=== PATIENT | male | born 1985 ===

== ENCOUNTER 2025-11-17 11:10 | Inpatient (IN) | payer MEDICARE, OTHER ==
[~2025-11-17] VITALS: Ht 185.4 cm; Wt 121.2 kg
[2025-11-17] MEDS ORDERED: Haloperidol Lactate Inj. 5 MG/ML Injection IM PRN (16:45)
[2025-11-17] MEDS ORDERED: FLU VACC TS2025-26(6MOS UP)/PF 45 MCG/0.5 ML SYRINGE IM SCH (16:45)
[2025-11-17] MEDS ORDERED: LORazepam 2 MG/ML 1ML Injection IM PRN (16:50)
[2025-11-17] MEDS ORDERED: DIVA500EC PO (16:52)
[2025-11-17] MEDS ORDERED: OLAN10 PO (16:52)
[2025-11-17] MEDS ORDERED: Ondansetron 4 MG SoluTab MM PRN (16:55)
[2025-11-17] MEDS ORDERED: DiphenhydrAMINE HCl 50 MG/ML 1ML Vial IM PRN (16:55)
[2025-11-17] MEDS ORDERED: Polyethylene Glycol 3350 17 gm PO PRN (16:55)
[2025-11-17] MEDS ORDERED: Aluminum Hydroxide 320MG/5ML 473 ML PO PRN (16:55)
[2025-11-17 17:31] VITALS: BP 135/92
--- NOTE | 2025-11-17 18:11 | NUR ---
ADMISSION NOTE PT BROUGHT TO [facility] FROM [facility] CR[facility]IT VIA SECURED TRANSPORT. PT ARRIVES DELUSIONAL AND AGITATED. SECURITY CALLED TO UNIT FOR STAND BY. PT VERBALLY THREATENING MHA'S. LEOPOLDO RN AND AND THIS RN SPOKE TO PT. PT SLIGHTLY CALMER. STATES HE IS IN THE [place] AND [place] [place]. HE IS ABLE TO STATE HIS MEDS, THE DATE, AND HIS PHARMACY WAS [facility]. MEDS WERE VERIFIED BY CHARGE NURSE AT [facility], THERE IS NO [facility] IN [facility]. PT REFUSING ANY PRN MEDICATIONS TO HELP WITH THE AGITATION, HE DAMENDS HIS DEPAKOTE THAT HE STATES HE HAS BEEN ON FOR YEARS. PT COOPERATIVE THE TWO RN SKIN CHECK, EXCEPT PT REFUSED TO EXPOSE HIS ANTERIOR LOWER HALF D/T RN'S WERE FEMALE. CHECK WAS DONE BY LEOPOLDO AND THIS RN. PT WAS COOPERATIVE SLIGHTLY LES AGITATED WITH THIS RN WHEN SIGNING FORMS. HE WAS ANXIOUS TO LEAVE THE ROOM AND GAVE DELUSIONAL ANSWERS TO MOST QUESTIONS. HE WAS GIVEN HIS TOUR OF THE UNIT AND THIS SEEMED TO MAKE HIM MORE CALM. HE WAS PROVIDED HIS OWN ROLL OF TOILET PAPER D/T HE FEELS IT UNSANITARY TO SHARE ONE WITH HIS ROOMMATE. PT WAS MORE CALM AFTER THE TOUR OF THE FACILITY. HE WAS PROVIDED WITH A JOURNAL AND EMERY BOARD. PT INFORMED OF PHONE HOURS AND VISITOR HOURS. PT WAS CALM AND COOPERATIVE WITH THIS RN DURING TOUR AND FORM SIGNING. UNABLE TO COMPLETE FULL ADMISSION ASSESSMENTS.
--- NOTE | 2025-11-17 23:11 | NUR ---
CHART REVIEW FROM [facility] REVEALS THE FOLLOWING: INVOLUNTARY HOSPITALIZATIONS FOR CHRIS/PSYCHOSIS IN NOVEMBER 2024, MARCH 2025, AND MULTIPLE ADMISSIONS IN 2023. DX INCLUDE BIPOLAR DISORDER, ANTISOCIAL PERSONALITY DISORDER, ANXIETY, MANIC DISORDER RECURRENT, CANNABIS DEPENDENCE. TAKES ZYPREXA, KLONOPIN, AND DEPAKOTE AT HOME. LIVES IN [place] [facility]. MENTAL HEALTH PROVIDERS ARE ROBER STODDARD (PROVIDER), MARY KAY BARNARD (CASH GRAIN GROWER), AND TERESSA LOPEZ (THERAPIST).
--- NOTE | 2025-11-17 23:32 | NUR ---
MID SHIFT SUMMARY: PT HAS SLEPT ALL EVENING. DID NOT WANT TO PARTICIPATE IN SNACK OR ON UNIT. STATES "I'M SO EXHAUSTED. I JUST NEED TO SLEEP." WAS GIVEN DEPAKOTE EARLY RELATED TO MISSED DOSING DURING TRANSITION THROUGH ER AND TRANSFER TO THIS FACILITY. PT THEN WENT TO SLEEP FOR THE EVENING AND HAS BEEN SLEEPING WITHOUT INTERRUPTION. CONTINUE 15 MINUTE CHECKS FOR SAFETY.
--- NOTE | 2025-11-18 00:14 | NUR ---
ASSUMPTION OF CARE ASSUMED CARE OF PATIENT FROM MICHAEL MANCIA AT MIDNIGHT. HE IS CURRENTLY RESTING QUIETLY IN HIS BED. NO SIGNS OF ACUTE DISTRESS NOTED. HE DID NOT RECEIVE ANY PRN MEDICATIONS PRIOR IN THE SHIFT. CONTINUES TO BE MONITORED EVERY 15 MINUTES FOR WELLNESS AND SAFETY.
--- NOTE | 2025-11-18 04:33 | NUR ---
END OF SHIFT SUMMARY PATIENT HAS SLEPT SINCE THIS FIELD SOFTWARE ENGINEER ASSUMED CARE AT MIDNIGHT. NO PRN MEDICATIONS WERE UTILIZED. PATIENT WOKE UP AT APPROXIMATELY 0330 AND WAS COMPLAINING ABOUT BEING HUNGRY. WHEN TOLD THE DINING GUTIERREZ WAS CLOSED UNTIL BREAKFAST, HE BECAME UPSET AND BEGAN ACCUSING STAFF OF STARVING HIM. HE THEN BEGAN TO BECOME RELIGIOUSLY PREOCCUPIED AND WAS ASKING ALL OF THE STAFF WHAT JAIN THEY WERE. THIS WAS HIS ADMISSION DAY AND HE HAD SLEPT THROUGH EVENING SNACK, THE DECISION WAS MADE TO ALLOW HIS A SNACK. HE CONSUMED 2 FRUIT CUPS AND AND CARTON OF MILK. HE THEN RETURNED TO HIS BED. CONTINUES TO BE MONITORED EVERY 15 MINUTES FOR WELLNESS AND SAFETY.
[2025-11-18 07:49] LABS: CHOL/HDL RATIO 2.8; Cholesterol 142 mg/dL (50-200); HDL Cholesterol 50 mg/dL (>39); LDL/HDL RATIO 1.4; Low Density Lipoprotein Chol 70 mg/dL (0-110); Triglycerides 112 mg/dL (30-140); Very Low Density Lipoprot Chol 22 mg/dL (6-28)
[2025-11-18] MEDS ORDERED: Multivitamins 1 Tab PO SCH (09:00)
--- NOTE | 2025-11-18 09:55 | NUR ---
PATIENT BECOMING AGITATED BECAUSE THE PROVIDER TOLD HIM HE WAS ON A HOLD AND WOULD NOT BE LEAVING TODAY. PATIENT UP AT NURSING STATION, REPEATING HIS CASE OF WHY HE SHOULD BE ABLE TO GO. SECURITY WAS CALLED AND IS MAKING AN APPEARANCE ON THE UNIT. PATIENT WAS OFFERED A PRN BUT IS NOT WILLING TO TAKE A MEDICATION UNLESS IT IS CLONODINE. NURSING WILL REVIEW THAT MEDICATION WITH THE PROVIDER DURING TEAM.
--- NOTE | 2025-11-18 11:11 | NUR ---
PCI INFO: [facility] [phone]
--- NOTE | 2025-11-18 17:31 | NUR ---
SHIFT SUMMARY PT A/O TO SELF AND PLACE. HE DENIES SI, HI, AVTH, BUT CAN BE SEEN RESPONDING TO INTERNAL STIMULI. PT EXPERIENCES SIGNIFICANT DELUSIONS. HE BELIEVES THAT HE IS IN THE [place], PART OF THE [employer] [place], AND THAT HE IS IN A RELATIONSHIP WITH TERESO ROLDAN. HE HAS A HARD TIME HAVING A ROOM MATE AND DECLINES TO SHOWER IN HIS ROOM. PT HAS NOW BEEN PUT INTO A ROOM BY HIMSELF FOR OTHER PATIENTS' COMFORT. PT DECLINES TO TAKE PRN MEDICATIONS AND WILL ONLY TAKE DEPAKOTE AND CLONIDINE. HE DID NOT ATTEND ANY GROUPS BUT DID EAT MEALS.
--- NOTE | 2025-11-19 05:05 | NUR ---
SHIFT SUMMARY 40 YEAR-OLD MALE PRESENTS WELL GROOMED. HE IS ALERT AND ORIENTED. HE SPEAKS IN A CLEAR VOICE AND IN AN APPROPRIATE VOLUME. HE IS ABLE TO MAKE AND KEEP EYE CONTACT DURING CONVERSATIONS. AT THE TIME OF HIS ASSESSMENT, HE DESCRIBED HIS MOOD "I'M GOOD". HE ALSO DENIED SI, HI, AND AVTH AT THAT TIME. HE WAS HOWEVER NOTED RESPONDING TO INTERNAL STIMULI AT VARIOUS TIMES THROUGHOUT THE SHIFT. HE ATTENDED SNACK AND DAY ROOM. AT APPROXIMATELY 1155, HE APPROACHED THE NURSES STATION TO TURN IN A BAG OF CHEETOS HE HAD TAKEN FROM THE DINING ROOM. HE AWOKE AT 1130 AND BEGAN TO ENGAGE IN ATTENTION SEEKING BEHAVIORS. STAFF DID NOT RESPOND TO THESE BEHAVIORS, AND HE WENT BACK TO HIS ROOM AT APPROXIMATELY 0400 AND TOOK A SHOWER. AT THE TIME OF THIS WRITING, HE IS SPEAKING AGGRESSIVELY WITH STAFF. SECURITY WAS CALLED. HE BEGAN TO BE VERBALLY AGGRESSIVE TOWARDS THEM ALSO. MADE COMMENTS ABOUT GANGS, FIGHTING, THROWING ELBOWS, AND REFERENCES TO PEDAPHILES. HE ALSO MADE SEXUALLY INAPPROPRIATE COMMENTS ABOUT MASTURBATING. HE WAS COMPLIANT WITH CARE AND MEDICATION ADMINISTRATION. HE RECEIVED THE FOLLOWING PRN MEDICATIONS: TYLENOL 650MG FOR 6/10 HIP PAIN. HE CONTINUES TO BE MONITORED EVERY 15 MINUTES FOR WELLNESS AND SAFETY.
--- NOTE | 2025-11-19 05:06 | NUR ---
PRN NOTE PATIENT RECEIVED THE FOLLOWING PRN MEDICATIONS DURING PATHOLOGY LABORATORY AIDE: TYLENOL 650MG FOR 6/10 HIP PAIN, NICORETTE 2MG AT 0452.
--- NOTE | 2025-11-19 10:55 | NUR ---
PT APPEARED TO BE AGGITATED UPON THIS RN'S ARRIVAL TO UNIT. PACING IN THE HALLWAY, SPEAKING IN A RAISED VOICE TO HIMSELF, STAFF AND PEERS. PT DECLINED TO PARTICIPATE IN HIS AM ASSESSMENT. WHEN ASKED ABOUT HIS MOOD, HE STATES "YOURE GOING TO CALL THE NATIONAL GUARD, NAW THEY WON'T DO ANYTHING" PT POSTURING AT STAFF AND PEERS, WALKING UP AND DOWN THE GUTIERREZ IN FRONT OF THE NURSES STATION. HIS CONVERSATIONPT REFUSED ALL MEDICATIONS. PT TANGINTIAL AND CONVERSATION VERY DIFFICULT TO FOLLOW. ATTEMPTS TO DEESCILATE WERE UNSUCCESSFUL. PT BECAME INCREASINGLY AGGITATED, SPEAKING LOUDER AND GETTING CLOSER TO STAFF AND OTHER PATIENTS. MASS SCORE OF 18. SECURITY CALLED TO UNIT TO ASSIST WITH EMERGENCY MEDICATION. PT STATED, "IF SECURITY COMES, IT'S ON", "CALL THE FUCKING STARTER MECHANIC". MEDICATIONS NOT GIVEN AT THIS TIME, PT REFUSES MEDICATIONS AND PER SECURITY THEY ARE NOT ABLE TO ASSIST WITH PHYSICAL HOLD UNLESS PT IS DAMAGING PROPERTY OR PHYSICALLY ASSUALTIVE. SECURITY LEFT THE UNIT AND DR. CHOPRA ORDERED 1:1 OBSERVATION FOR PATIENT. PRESSROOM SUPERVISOR NOTIFED AND 1:[address]
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
--- NOTE | 2025-11-20 07:51 | NUR ---
AT APPROXIMATELY 0645 PATIENT IS YELLING IN THE GUTIERREZ AT STAFF AND OTHER PATIENTS. HE IS POSTURING AND MAKING LUNGING MOTIONS TO STFF AND OTHER PATIENTS. HE IS REACHING OVER PLEXY GLASS INTO NURSING STATION YELLING PROFANITIES. ATTEMPTED TO VERBALY DEESCALATE, THIS CAUSES PT TO YELL LOUNDER AND JUMP UP AND DOWN, THREATENING TO KILL STAFF. SECURITY CALLED. PT IS REFUSING ORAL MEDICATION. DR. CHOPRA NOTIFIED ORDER FOR SECLUSION AND 10MG HALODOL, 50MG BENADRYL, AND 2MG ATIVAN RECIEVED AND ADMINISTERED. PT YELLING AND THREATENING STAFF AND SECURITY BUT AFTER MUCH ENCOURAGEMENT HE DID ALLOW THIS RN TO ADMINISTER IM WITHOUT GOING HANDS ON AND SECURITY HOLDING HIS HAND. HE WAS STILL POSTURING AND THREATENING TO KILL STAFF. HE DID WALK HIMSELF TO SECLUSION YELLING AND JUMPING . HE BEGAN PUNCHING MIDDLETON AND WINDOWS THREATENING TO KILL STAFF. HE WAS PUNCHING HIMSELF IN THE CHEST. HE DEFICATED IN THE CORNER. WE WILL CONTINUE ONE TO ONE AND 15 MINUTE CHARTING
--- NOTE | 2025-11-20 08:57 | NUR ---
AT APPROXIMATELY 0845 PT HAS SETTLED DOWN AND APPEARS TO BE SLEEPING. THIS RN INTO SELCIUSION ROOM AND OFFERED THE PATIENT TO GO LAY DOWN IN HIS ROOM PATIENT SHOOK HIS HEAD NO. HE WAS OFFERED WATER OR FOOD HE AGAIN SHOOK HEAD NO. SECLUSION ROOM UNLOCKED. PT IS FREE TO LEAVE ROOM AT HIS WILL. CONTINUED ONE TO ONE WITH RADHA VILLARREAL. PT CONTINUES TO REST ON ECLUSION ROOM MATTRESS
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
--- NOTE | 2025-11-20 11:18 | NUR ---
SPOKE WITH DR. CHOPRA ORDERS RECIEVED OKAY TO DC 1:1 UNTIL PATIENT WAKES UP THEN REASSESS.
--- NOTE | 2025-11-20 17:37 | NUR ---
SHIFT SUMMARY PT REFUSED ALL ASSESMENTS. HIS SPEECH IS PRESSURED AND TANGENTAL. HE MAKES PRANOID STATEMENTS ABOUT STAFF AND PEERS. HE WAS DISRUPTIVE ON THE UNIT AND WAS GIVEM IM HALIODOL, ATIVAN, AND BENADRYL AND PLACED IN SOLITARE. WHEN OUT AGAIN HE BEGAN TO ESCALATE AGAIN AND RECIEVED PRN ZYPREXA. PLEASE SEE PREVIOUS NOTES. AFTER THAT PT HAS SLEPT THROUGH THE AFTERNOON WITHOUT ISSUE. WILL CONTINUE POC
--- NOTE | 2025-11-20 22:17 | NUR ---
Patient sleeping with even chest rise and fall. Will continue close observation every 15 minutes for safety and comfort per unit protocol
--- NOTE | 2025-11-21 04:39 | NUR ---
SHIFT SUMMARY Patient slept throughout the shift. Woke enough to decline snack and evening medications. 15 minute checks revealed equal rise and fall of chest and soft snoring breath sounds. Will continue close monitoring every 15 minutes for safety and wellness per unit standards.
--- NOTE | 2025-11-21 07:50 | NUR ---
A APPROX 0645 THIS RN CAME ON SHIFT AND NOTED NOC CHARGE AND SECURITY AT PATIENTS ROOM. SUN RN HAD OFFERED PT ORAL B52 TO ELEVATED BEHAVIORS. HE REFUSED. WHILE SUN RN WAS DRAWING IM B52. PT NOTED TO BE IN ROOM YELLING PROFANITIES. THIS RN ASSISTED SUN IN ADMINISTERING IM HALODOL 5MG, ATIVAN 2MG, AND BENADRYL 50MG. PT WAS TANGENTAL AND SHOUTING BUT ALLOWED US TO ADMINISTER MEDICATION. HE WAS SHOUTING THAT WE ARE STARVING HIM AND THAT HE WAS THIRSTY. THIS RN BROUGHT PATIENT TWO SANDWICHES, CHEESE, CHIPS AND WATER TO HIS ROOM. AT THE TIME HE REFUSED FOOD AND WATER. FOOD AND WATER WAS LEFT IN PATIENTS ROOM. THIS RN CHECKED PT 30 MIN LATER AND HE WAS RESTING RR EVEN AND UNLABOURED.
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
--- NOTE | 2025-11-21 15:21 | NUR ---
PT UP AND OUT OF ROOM APPROX 1430. HE WAS CALM AND CAME TO NURING STATION AND ASKED FOR TOWELS AND BODY WASH. HE WAS CALM AND ABLE TO FOLLOW DIRECTION. HE TOOK A SHOWER. HE THEN CAME TO NURSING STATION AND ASK FOR IBUPROPHEN FOR 7/10 HIP PAIN. HE ASKED ABOUT DISCHARGE AND THIS RN EXPLAINED CRITERIA. HE VERBALIZED UNDERSTANDING. HE THEN RETURNED TO HIS ROOM WITHOUT ISSUE
--- NOTE | 2025-11-21 16:08 | NUR ---
PT UP TO SNACK WITH MILIEU. HE WAS POLITE, CURTIOUS AND DID NOT ENGAGE PEERS IN A NEGATIVE MANNOR. PT COMPLIMENTED ON BEHAVIOR. HE IS BACK IN ROOM.
--- NOTE | 2025-11-22 04:10 | NUR ---
Patient is alert aand oriented times four. He has been pleasant and cooperative with staff and peers overnight. Took Acetaminophen and ibuprophen twice through the shift for generalized aches from "sleeping so long in one position". Denied SI,HI and AVTH during evening assessment. Will continue close observation every 15 minutes for safety and wellness per unit standard.
--- NOTE | 2025-11-22 04:11 | NUR ---
PRN MEDICATION ADMINISTRATION: PATIENT AWAKENED AND REQUESTED IBUPROFEN AND TYLENOL FOR 7/10 LOWER BACK PAIN. HE WAS POLITE AND APPROPRIATE IN HIS INTERACTIONS WITH STAFF. HE ASKED, "CAN I STILL LEAVE TODAY?" HE WAS TOLD THAT HIS DISCHARGE IS UP TO THE DOCTOR, AND IS SOMEWHAT DEPENDENT ON HIS CONTINUATION OF STABLE BEHAVIORS. HE WAS TOLD THAT HE IS ACTING SAFE AND APPROPRIATE, AND THAT HE SHOULD CONTINUE THOSE BEHAVIORS. HE THANKED THE RN AND WENT BACK TO HIS ROOM WHERE HE WAS NOTED TO BE RESTING QUIETLY ON HIS BED WITH NO MORE C/O PAIN.
--- NOTE | 2025-11-22 11:58 | NUR ---
Patient was discharged 1157, to home, via [facility] as approved by Medhat Tamayo, and forwarded to Nanette Grubbs. The patients discharge paperwork was reviewed with the patient, which he signed. The provider met with the patient before he decided to release his hold. Services were not open today, so the discharge plan includes a phone number for [facility] so that the patient can schedule an appt. at his convenience. Medications were called into [facility] using Dr. Alcazar name and NPI.(14 day supply of Depakote). Patient denies suicidal/homicidal feeling and denies hallucination.
== END 2025-11-22 11:57 | disposition home or self-care (01) | DRG 883 ==
LOC: BHU 11:10
PROVIDERS: ADMIT Psychiatry & Neurology Psychiatry
DX: F60.2 Antisocial personality disorder (principal); F31.2 Bipolar disorder, current episode manic severe with psychotic features; F12.90 Cannabis use, unspecified, uncomplicated
CPT/HCPCS: 36415; 80061; 83036; A9270; J1200; J1630; J2060